=== PATIENT | female | born 1955 | race Caucasian/White ===

== ENCOUNTER 2025-03-20 09:50 | Day surgery (SDC) | payer MEDICARE, BC, SELFPAY ==
[2025-03-20 10:19] VITALS: BP 154/81; PULSE 90; RESP 20; TEMP 36.2; O2SAT 98
[2025-03-20] MEDS: Tropicam./Phenyleph. (1/2.5%) 5 ML BTL OS ×3 (10:47→11:04)
--- NOTE | 2025-03-20 11:09 | W.ANESPRE ---
General Info Date of Service Date Performed: 03/20/25 Height: 5 ft 4.5 in Weight: 94.1 kg Body Mass Index (BMI): 35.0 Surgical Procedure: Operation Date: 03/20/25 12:40 Proposed Procedure Side Surgeon p Cataract Extraction with IOL Implant Left Rex Jansen MD Meds Allergies and Home Medications Allergies Allergy/AdvReac Type Severity Reaction Status Date / Time Sulfa (Sulfonamide Allergy Skin Rash Verified 03/20/25 10:58 Antibiotics) pantoprazole AdvReac Other (See Verified 03/20/25 10:58 Comment) Home Medication ?Medication ?Instructions ?Recorded ascorbic acid (vitamin C) 500 mg 500 mg PO DAILY 03/19/25 tablet (Vitamin C With Sadie Hips) cholecalciferol (vitamin D3) 10 400 unit PO DAILY 03/19/25 mcg (400 unit) tablet (Delta D3) hydrochlorothiazide 25 mg tablet 25 mg PO DAILY 03/19/25 lansoprazole 30 mg capsule,delayed 30 mg PO DAILY 03/19/25 release lisinopril 20 mg tablet 20 mg PO DAILY 03/19/25 metformin 500 mg tablet 1,000 mg PO BID 03/19/25 multivitamin (Daily Value tablet) 1 tab PO DAILY 03/19/25 omega 0-szc-kgn-fish oil 1,200 mg 1 cap PO DAILY 03/19/25 (144 mg-216 mg) capsule (Fish Oil) potassium 99 mg tablet 99 mg PO DAILY 03/19/25 tumeric/curcumin w/livia 1 cap PO DAILY 03/19/25 vitamin E 268 mg (400 unit) capsule 536 mg PO DAILY 03/19/25 Current Visit Medications: Current Medications Generic Name Dose Route Start Last Admin Trade Name Freq PRN Reason Stop Dose Admin Acetaminophen 1,000 mg 03/20/25 06:00 Acetaminophen 500 Mg Tab PO 04/19/25 05:59 Q4H PRN PRN Balanced Salt Solution 500 ml 03/20/25 06:00 Balanced Salt Soln.-Plus 500 Ml Bag OP 04/19/25 05:59 DIRECTED KANU Miscellaneous Medication 0 ml 03/20/25 06:00 Prednisolone 1%, Moxifloxacin 0.5%, Bromfenac 0.09% 5.6ml Btl OS 04/19/25 05:59 DIRECTED KANU Miscellaneous Medication 0 ml 03/20/25 06:00 03/20/25 11:04 Tropicam./Phenyleph. (1/2.5%) 5 Ml Btl OS 04/19/25 05:59 1 drp DIRECTED KANU Administration Tetracaine HCl 0 ml 03/20/25 06:00 Tetracaine 0.5% 4 Ml Btl OS 04/19/25 05:59 DIRECTED KANU PFSH Active Problems Active Problems: Problem Status Onset Code Cortical age-related cataract, left eye Acute H25.012 Nuclear age-related cataract, left eye Acute H25.12 Medical History Medical History Sleep apnea Breast cancer HTN (hypertension) Surgical History Surgical History History of mastectomy Hx of cholecystectomy Tobacco Smoking/Tobacco Use Status: Never Alcohol Alcohol Intake: never Substance Use Substance use type: does not use Vital Signs and Lab Results Vital Signs Most Recent Vital Signs in EMR: Most Recent Vital Signs Temp Pulse Resp BP Pulse Ox 36.2 C L 90 20 154/81 H 98 03/20/25 10:19 03/20/25 10:19 03/20/25 10:19 03/20/25 10:19 03/20/25 10:19 Point of Care Results Point of Care Results: Finger Stick Blood Glucose 103 03/20/25 10:27 Anesthesia Assessment and Plan Anesthesia History Personal History: No History of Anesthesia Complications Family History: No Family History of Anesthesia Complications Exercise Tolerance Exercise Tolerance: Metabolic Equivalents>4 Pertinent Negatives Pertinent Negatives: No Symptoms of GERD, No Major Cardiovascular Symptoms or Complaints and No Major Pulmonary Symptoms or Complaints Cardiac & Pulmonary Exam Cardiac Exam: Normal S1/S2 Heart Sounds Pulmonary Exam: Clear Bilateral Breath Sounds Implantable Cardiac Device Does patient have a Pacemaker or an ICD?: No Airway Exam Known Difficult Airway: No Mallampati Class: 3 Mouth Opening: Normal (> 3cm) Thyromental Distance: Greater than 3 cm Neck Range of Motion: Full ROM Neck Circumference: Normal Teeth Condition: Normal Dentition ASA Classification ASA Score: ASA 3 Emergency Case?: No NPO Status NPO Status: NPO Clears >2 hours, Solids >8 hours Anesthesia Plan Resuscitation Status: Full Code Anesthesia Technique: MAC Anesthesia Airway Planned: Natural Airway Monitors Used: Standard Monitors
[2025-03-20 11:43] VITALS: BMI 35.0
[2025-03-20] MEDS: Duovisc Viscoelastic System EACH 1 EACH (11:57)
[2025-03-20] MEDS: Lidocaine 1% Pres-Free 5 ML VIAL (11:58)
[2025-03-20] MEDS: Moxifloxacin-PF 1 MG/ML VIAL (11:59)
[2025-03-20] MEDS: Phenylephrine/Lidocaine (15/10) MG/ML 1 ML VIAL (12:00)
[2025-03-20] MEDS: Povidone-Iodine Ophth 30 ML BTL (12:01)
[2025-03-20] MEDS: Balanced Salt Soln.-PLUS 500 ML BAG OP (12:02)
[2025-03-20] MEDS: Prednisolone 1%, Moxifloxacin 0.5%, Bromfenac 0.09% 5.6ML BTL OS (12:04)
[2025-03-20] MEDS: Tetracaine 0.5% 4 ML BTL OS (12:05)
[2025-03-20 12:15] VITALS: BP 136/78; PULSE 80; RESP 20; TEMP 35.9; O2SAT 97
--- NOTE | 2025-03-20 12:17 | W.PM.DSUDISC ---
Date of service: 03/20/25 Discharge Plan Disposition Patient Disposition: Home Discharge Details Attending Provider: Rex Jansen Primary Care Provider: Andrew Lyons Home Meds and New Rx's Prescriptions: No Action lisinopril 20 mg tablet 20 mg PO DAILY Patient Comments: TAKE ONE TABLET BY MOUTH EVERY DAY metformin 500 mg tablet 1,000 mg PO BID Patient Comments: TAKE TWO TABLETS BY MOUTH TWICE A DAY hydrochlorothiazide 25 mg tablet 25 mg PO DAILY Patient Comments: TAKE ONE TABLET BY MOUTH EVERY DAY lansoprazole 30 mg capsule,delayed release(DR/EC) 30 mg PO DAILY omega 7-uiw-gpm-fish oil [Fish Oil] 1,200 (144-216) mg capsule 1 cap PO DAILY multivitamin [Daily Value] Tablet 1 tab PO DAILY ascorbic acid (vitamin C) [Vitamin C With Sadie Hips] 500 mg tablet 500 mg PO DAILY cholecalciferol (vitamin D3) [Delta D3] 10 mcg (400 unit) tablet 400 unit PO DAILY vitamin E 268 mg (400 unit) capsule 536 mg PO DAILY potassium 99 mg tablet 99 mg PO DAILY tumeric/curcumin w/livia 1 cap PO DAILY Discharge Instructions Stand Alone Forms: DSU Post-Op CataractZuhair (DSU) Discharge Orders Discharge Orders: Discharge Order (Routine); Ordered 03/20/25 Ordered By: Rex Jansen DS: Diagnosis Discharge Diagnosis (1) Cortical age-related cataract, left eye: Status: Resolved (2) Nuclear age-related cataract, left eye: Status: Resolved
--- NOTE | 2025-03-20 12:18 | ROE_ITS ---
Operative Note Operative Note PRE-OP DIAGNOSIS: Nuclear/cortical cataract, left eye POST-OP DIAGNOSIS: same PROCEDURE: Cataract extraction using phacoemulsification with intraocular lens implant, left eye SURGEON: Rex Jansen ANESTHESIA TYPE: Local By Surgeon and MAC Refer to Anesthesia Record PATHOLOGY: none sent COMPLICATIONS: None Patient was transported to: same day Patient's condition: stable Implants: David Clareon [id number] Indications: Progressive decreased vision due to cataract, left eye Procedure Description: CATARACT SURGERY OPERATIVE REPORT PREOPERATIVE DIAGNOSIS: Nuclear/cortical cataract, left eye POSTOPERATIVE DIAGNOSIS: Same OPERATION: Cataract extraction using phacoemulsification with posterior chamber intraocular lens implant, left eye. IOL: IOL Take Off Worker/Model: David Clareon [id number] IOL Power: + 14.0 diopters IOL Serial Number: [id number] Optic Diameter: 6.0mm Haptic/Overall Diameter: 13.0mm PHACO INFO: David Centurion Vision System with OZil and Active Fluidics Cumulative Dispersed Energy (CDE): 8.69 seconds SURGEON: Rex Jansen MD, RAHEEL ANESTHESIA: Monitored Anesthesia Care (MAC), with local sub-tenon's anesthetic infiltration COMPLICATIONS: None SPECIMENS: None INDICATIONS FOR PROCEDURE: The patient is a 69-year-old lady with history of diminished visual acuity in her left eye secondary to the development of nuclear/cortical cataract. She is significantly symptomatic that she desires cataract surgery and attempt to improve and maximize her vision. The option of cataract surgery was offered to the patient and she wished to proceed. See office notes for detailed information. PROCEDURE: The correct surgical eye was identified and marked as the left eye and the pupil was dilated in the preoperative area using mydriatics and cycloplegics. The dilated pupil size was 7.0 mm. The patient elected to proceed without oral sedation. The patient was brought to the operating room where cardiopulmonary monitoring was instituted and surgical time-out was performed, confirming the correct operative eye and IOL power. Topical anesthesia was administered and ophthalmic povidone-iodine 5% was instilled into the conjunctival fornices. The hamzah-ocular area was prepped with Betadine 10% solution and draped in the usual sterile fashion for intraocular surgery, including an aperture drape. A Tegaderm transparent film dressing was cut in half and used to cover the lashes and lid margins. Care was taken to sequester the lashes and lid margins under the Tegaderm dressing. A lid speculum was placed between the lids of the operative eye and the David LuxOR Revalia operating microscope was maneuvered into position. Marito scissors were then used to make a conjunctival buttonhole approximately 6mm posterior to the limbus in the inferonasal quadrant. Blunt dissection was carried out to expose bare sclera, and a blunt-tipped sub-tenon?s anesthesia cannula was introduced and passed posteriorly along the globe where non- preserved plain lidocaine was injected into posterior sub-Tenon?s space. A sideport knife was used to make a paracentesis port. Intraocular phenylephrine/lidocaine was injected into the anterior chamber. The anterior chamber was then filled with viscoelastic. A keratome knife was used construct a two-plane clear corneal tunnel extending 2.0mm into clear cornea. A flap was raised on the anterior capsule and capsulorhexis forceps were used to complete a continuous curvilinear capsulorhexis of 5.5 mm. Balanced salt solution was then used to perform cortical cleaving hydrodissection and nuclear hydrodelineation until the lens could be freely rotated within the capsular bag. The lens nucleus was then disassembled and removed within the capsular bag and iris plane using phacoemulsification. Residual cortical material was removed using the irrigation/aspiration handpiece. The posterior capsule was carefully polished to remove as much residual lens epithelial cells as safely possible. The capsular bag was then inflated and the anterior chamber deepened with viscoelastic. The lens implant described above was inserted into the capsular bag using the David Autonome Injector. A Kuglen hook was used to dial the IOL into position. Residual viscoelastic was then removed first from posterior to the IOL, then from the anterior chamber using the I/A handpiece. The lens implant was noted to center nicely within the capsular bag. The incisions were stromally hydrated, and the anterior chamber was reformed using BSS. Then 0.5cc of moxifloxacin 1.0mg/ml were injected into the capsular bag and anterior chamber. The incisions were checked with a Weck spear and found to be secure. Several drops of ophthalmic povidone-iodine 5% were then applied to the eye followed by two drops of combination steroid/NSAID/antibiotic solution. The drapes were removed and a clear plastic protective eye shield was placed over the eye. The patient was then returned to Same Day Surgery in stable condition. Date of Procedure: 03/20/25
--- NOTE | 2025-03-20 12:34 | W.ANESPOSTOP ---
Postoperative Evaluation Date, Time and Location Date Performed: 03/20/25 Time Performed: 12:27 Patient Location: Day Surgery Unit Vital Signs Most Recent Imported Vital Signs: Most Recent Vital Signs Temp Pulse Resp BP Pulse Ox 35.9 C L 80 20 136/78 97 03/20/25 12:15 03/20/25 12:15 03/20/25 12:15 03/20/25 12:15 03/20/25 12:15 Pain Score Most Recent Pain Score: Most Recent Pain Score Pain Level 0 03/20/25 12:15 Assessment Mental Status: Awake (Alert & Oriented to Patient Baseline) Airway and Respiratory Function: Patent airway with normal (patient baseline) respiratory exam Cardiovascular Function: Hemodynamically Stable Hydration Status: Adequately Hydrated Nausea & Vomiting: No Nausea or Vomiting Pain: Pt. Denies Any Pain Peripheral Nerve Block: Patient did not receive a nerve block
== END 2025-03-20 12:35 | disposition home or self-care (01) ==
PROVIDERS: PCP Family Medicine; Visit Provider Ophthalmology
PROC: (CPT 66984; principal; 2025-03-20 12:30)
DX: H25.012 Cortical age-related cataract, left eye (principal); H25.12 Age-related nuclear cataract, left eye
CPT/HCPCS: 66984; 00123; V2632; J2003

== ENCOUNTER 2025-04-17 13:08 | Day surgery (SDC) | payer MEDICARE, BC, SELFPAY ==
--- NOTE | 2025-04-16 19:57 | W.PREOPHP ---
Assessment and Plan Assessment and plan (1) Nuclear age-related cataract, right eye: Status: Acute Assessment and plan: Assessent: Visually significant cataract, right eye. Plan: Cataract extraction with intraocular lens implant, right eye. (2) Cortical age-related cataract, right eye: Status: Acute Assessment and plan: Assessent: Visually significant cataract, right eye. Plan: Cataract extraction with intraocular lens implant, right eye History of Present Illness History of Present Illness Chief Complaint: Progressive decreased vision, right eye Narrative: The patient is a 69-year-old lady with history of diminished acuity in both eyes. She notes severe difficulty with glare at night. She has difficulty working on computers, and reading posters in her classroom. She has trouble reading fine print. She has a history of myopia and has worn glasses since fifth grade. She was noted to have bilateral nuclear/cortical cataracts, and underwent cataract surgery in the left eye on 03/20/2025. She is doing well postoperatively and now presents for cataract surgery in the right eye. Review of Systems All systems reviewed & are unremarkable except as noted in HPI and below PFSH All Active Problems Cortical age-related cataract, right eye (Acute) Nuclear age-related cataract, right eye (Acute) Medical History Sleep apnea Breast cancer HTN (hypertension) Surgical History History of mastectomy Hx of cholecystectomy Social History Smoking/Tobacco Use Status: Never Smoking risk assessment performed?: Yes Alcohol Intake: never Drug use: Never Substance use type: does not use Housing: house Do you feel safe at home: Yes Do you feel safe in your relationship?: Yes Meds Allergies and Home Medications Allergies Allergy/AdvReac Type Severity Reaction Status Date / Time Sulfa (Sulfonamide Allergy Skin Rash Verified 04/17/25 13:18 Antibiotics) pantoprazole AdvReac Other (See Verified 04/17/25 13:18 Comment) Home Medications ?Medication ?Instructions ?Recorded ?Confirmed ?Type ascorbic acid (vitamin C) 500 mg 500 mg PO DAILY 03/19/25 04/17/25 History tablet (Vitamin C With Asdie Hips) cholecalciferol (vitamin D3) 10 400 unit PO DAILY 03/19/25 04/17/25 History mcg (400 unit) tablet (Delta D3) hydrochlorothiazide 25 mg tablet 25 mg PO DAILY 03/19/25 04/17/25 History lansoprazole 30 mg capsule,delayed 30 mg PO DAILY 03/19/25 04/17/25 History release lisinopril 20 mg tablet 20 mg PO DAILY 03/19/25 04/17/25 History metformin 500 mg tablet 1,000 mg PO BID 03/19/25 04/17/25 History multivitamin (Daily Value tablet) 1 tab PO DAILY 03/19/25 04/17/25 History omega 1-yej-hhy-fish oil 1,200 mg 1 cap PO DAILY 03/19/25 04/17/25 History (144 mg-216 mg) capsule (Fish Oil) potassium 99 mg tablet 99 mg PO DAILY 03/19/25 04/17/25 History tumeric/curcumin w/livia 1 cap PO DAILY 03/19/25 04/17/25 History vitamin E 268 mg (400 unit) capsule 536 mg PO DAILY 03/19/25 04/17/25 History Exam Eyes Other: Corrected visual acuity measured 20/30 OD, 20/40 OS. Extraocular agility is normal. Intraocular pressure is 16 OU. Pupils dilate to 6 mm. In the right eye there is a mild close moderate nuclear cataract. In the left eye there is a well-positioned intraocular lens with clear posterior capsule. Funduscopic examination shows disc cupping of 0.4 OD 0.3 OS with normal vessels, macula, peripheral retina and vitreous. Resp Auscultation: clear to auscultation bilaterally Cardio Rate: regular rate Rhythm: regular rhythm
[2025-04-17 13:09] VITALS: BP 161/92; PULSE 96; RESP 16; TEMP 36.2; O2SAT 98
[2025-04-17 13:26] VITALS: BMI 34.3
[2025-04-17] MEDS: Tropicam./Phenyleph. (1/2.5%) 5 ML BTL OD ×3 (13:26→13:35)
--- NOTE | 2025-04-17 13:26 | W.ANESPRE ---
General Info Date of Service Date Performed: 04/17/25 Height: 5 ft 4.5 in Weight: 92.2 kg Body Mass Index (BMI): 34.3 Surgical Procedure: Operation Date: 04/17/25 13:55 Proposed Procedure Side Surgeon p Cataract Extraction with IOL Implant Right Rex Jansen MD Meds Allergies and Home Medications Allergies Allergy/AdvReac Type Severity Reaction Status Date / Time Sulfa (Sulfonamide Allergy Skin Rash Verified 04/17/25 13:18 Antibiotics) pantoprazole AdvReac Other (See Verified 04/17/25 13:18 Comment) Home Medication ?Medication ?Instructions ?Recorded ascorbic acid (vitamin C) 500 mg 500 mg PO DAILY 03/19/25 tablet (Vitamin C With Sadie Hips) cholecalciferol (vitamin D3) 10 400 unit PO DAILY 03/19/25 mcg (400 unit) tablet (Delta D3) hydrochlorothiazide 25 mg tablet 25 mg PO DAILY 03/19/25 lansoprazole 30 mg capsule,delayed 30 mg PO DAILY 03/19/25 release lisinopril 20 mg tablet 20 mg PO DAILY 03/19/25 metformin 500 mg tablet 1,000 mg PO BID 03/19/25 multivitamin (Daily Value tablet) 1 tab PO DAILY 03/19/25 omega 0-ybh-ciy-fish oil 1,200 mg 1 cap PO DAILY 03/19/25 (144 mg-216 mg) capsule (Fish Oil) potassium 99 mg tablet 99 mg PO DAILY 03/19/25 tumeric/curcumin w/livia 1 cap PO DAILY 03/19/25 vitamin E 268 mg (400 unit) capsule 536 mg PO DAILY 03/19/25 Current Visit Medications: Current Medications Generic Name Dose Route Start Last Admin Trade Name Freq PRN Reason Stop Dose Admin Acetaminophen 1,000 mg 04/17/25 06:00 Acetaminophen 500 Mg Tab PO 05/17/25 05:59 Q4H PRN PRN Balanced Salt Solution 500 ml 04/17/25 06:00 Balanced Salt Soln.-Plus 500 Ml Bag OP 05/17/25 05:59 DIRECTED KANU Miscellaneous Medication 0 ml 04/17/25 06:00 Prednisolone 1%, Moxifloxacin 0.5%, Bromfenac 0.09% 5.6ml Btl OD 05/17/25 05:59 DIRECTED KANU Miscellaneous Medication 0 ml 04/17/25 06:00 Tropicam./Phenyleph. (1/2.5%) 5 Ml Btl OD 05/17/25 05:59 DIRECTED [facility] Tetracaine HCl 0 ml 04/17/25 06:00 Tetracaine 0.5% 4 Ml Btl OD 05/17/25 05:59 DIRECTED [facility] PFSH Active Problems Active Problems: Problem Status Onset Code Cortical age-related cataract, right eye Acute H25.011 Nuclear age-related cataract, right eye Acute H25.11 Cortical age-related cataract, left eye Resolved H25.012 Nuclear age-related cataract, left eye Resolved H25.12 Medical History Medical History Sleep apnea Breast cancer HTN (hypertension) Surgical History Surgical History History of mastectomy Hx of cholecystectomy Tobacco Smoking/Tobacco Use Status: Never Passive smoking exposure: No Alcohol Alcohol Intake: never Substance Use Substance use: Never Substance use type: does not use Vital Signs and Lab Results Vital Signs Most Recent Vital Signs in EMR: Most Recent Vital Signs Temp Pulse Resp BP Pulse Ox 36.2 C L 96 H 16 161/92 H 98 04/17/25 13:09 04/17/25 13:09 04/17/25 13:09 04/17/25 13:09 04/17/25 13:09 Anesthesia Assessment and Plan Anesthesia History Personal History: No History of Anesthesia Complications Family History: No Family History of Anesthesia Complications Exercise Tolerance Exercise Tolerance: Metabolic Equivalents>4 Pertinent Negatives Pertinent Negatives: No Symptoms of GERD (RX) Cardiac & Pulmonary Exam Cardiac Exam: Normal S1/S2 Heart Sounds Pulmonary Exam: Clear Bilateral Breath Sounds Implantable Cardiac Device Does patient have a Pacemaker or an ICD?: No Airway Exam Known Difficult Airway: No Mallampati Class: 3 Mouth Opening: Normal (> 3cm) Thyromental Distance: Greater than 3 cm Neck Range of Motion: Full ROM Neck Circumference: Normal Teeth Condition: Normal Dentition ASA Classification ASA Score: ASA 3 Emergency Case?: No NPO Status NPO Status: NPO Clears >2 hours, Solids >8 hours Anesthesia Plan Resuscitation Status: Full Code Anesthesia Technique: MAC Anesthesia Airway Planned: Natural Airway Monitors Used: Standard Monitors
[2025-04-17] MEDS: Duovisc Viscoelastic System EACH 1 EACH (13:45)
[2025-04-17] MEDS: Povidone-Iodine Ophth 30 ML BTL (13:46)
[2025-04-17] MEDS: Balanced Salt Soln.-PLUS 500 ML BAG OP (13:46)
[2025-04-17] MEDS: Tetracaine 0.5% 4 ML BTL OD (13:46)
[2025-04-17] MEDS: Phenylephrine/Lidocaine (15/10) MG/ML 1 ML VIAL (13:47)
[2025-04-17] MEDS: Lidocaine 1% Pres-Free 5 ML VIAL (13:47)
[2025-04-17] MEDS: Moxifloxacin-PF 1 MG/ML VIAL (13:48)
[2025-04-17] MEDS: Prednisolone 1%, Moxifloxacin 0.5%, Bromfenac 0.09% 5.6ML BTL OD (13:48)
[2025-04-17 14:08] VITALS: BP 155/81; PULSE 80; RESP 14; TEMP 36.6; O2SAT 97
--- NOTE | 2025-04-17 14:11 | W.PM.DSUDISC ---
Date of service: 04/17/25 Discharge Plan Disposition Patient Disposition: Home Discharge Details Attending Provider: Rex Jansen Primary Care Provider: Andrew Lyons Home Meds and New Rx's Prescriptions: No Action lisinopril 20 mg tablet 20 mg PO DAILY Patient Comments: TAKE ONE TABLET BY MOUTH EVERY DAY metformin 500 mg tablet 1,000 mg PO BID Patient Comments: TAKE TWO TABLETS BY MOUTH TWICE A DAY hydrochlorothiazide 25 mg tablet 25 mg PO DAILY Patient Comments: TAKE ONE TABLET BY MOUTH EVERY DAY lansoprazole 30 mg capsule,delayed release(DR/EC) 30 mg PO DAILY omega 9-bdx-kzf-fish oil [Fish Oil] 1,200 (144-216) mg capsule 1 cap PO DAILY multivitamin [Daily Value] Tablet 1 tab PO DAILY ascorbic acid (vitamin C) [Vitamin C With Sadie Hips] 500 mg tablet 500 mg PO DAILY cholecalciferol (vitamin D3) [Delta D3] 10 mcg (400 unit) tablet 400 unit PO DAILY vitamin E 268 mg (400 unit) capsule 536 mg PO DAILY potassium 99 mg tablet 99 mg PO DAILY tumeric/curcumin w/livia 1 cap PO DAILY Discharge Instructions Stand Alone Forms: DSU Post-Op Cataract, Zuhair Cantu (DSU) Discharge Orders Discharge Orders: Discharge Order (Routine); Ordered 04/17/25 Ordered By: Rex Jansen DS: Diagnosis Discharge Diagnosis (1) Nuclear age-related cataract, right eye: Status: Resolved (2) Cortical age-related cataract, right eye: Status: Resolved
--- NOTE | 2025-04-17 14:12 | ROE_ITS ---
Operative Note Operative Note PRE-OP DIAGNOSIS: Nuclear/cortical cataract, right eye POST-OP DIAGNOSIS: same PROCEDURE: Cataract extraction using phacoemulsification with intraocular lens implant, right eye SURGEON: Rex Jansen ANESTHESIA TYPE: Local By Surgeon and MAC Refer to Anesthesia Record ESTIMATED BLOOD LOSS: 0 PATHOLOGY: none sent COMPLICATIONS: None Patient was transported to: same day Patient's condition: stable Implants: David Clareon [id number] Indications: Progressive decreased vision due to cataract, right eye Procedure Description: CATARACT SURGERY OPERATIVE REPORT PREOPERATIVE DIAGNOSIS: Nuclear/cortical cataract, right eye POSTOPERATIVE DIAGNOSIS: Same OPERATION: Cataract extraction using phacoemulsification with posterior chamber intraocular lens implant, right eye. IOL: IOL Data Integration Architect/Model: David Clareon [id number] IOL Power: + 13.5 diopters IOL Serial Number: [id number] Optic Diameter: 6.0mm Haptic/Overall Diameter: 13.0mm PHACO INFO: David [employer]urion Vision System with OZil and Active Fluidics Cumulative Dispersed Energy (CDE): 3.58 seconds SURGEON: Rex Jansen MD, RAHEEL ANESTHESIA: Monitored Anesthesia Care (MAC), with local sub-tenon's anesthetic infiltration COMPLICATIONS: None SPECIMENS: None INDICATIONS FOR PROCEDURE: The patient is a 69-year-old lady with history of myopia who has developed significant symptomatic bilateral nuclear/cortical cataract. The option of cataract surgery was offered to the patient and she wished to proceed. She has already undergone cataract surgery in the left eye and is doing well postoperatively. She now presents for cataract surgery in the right eye. See office notes for detailed information. PROCEDURE: The correct surgical eye was identified and marked as the right eye and the pupil was dilated in the preoperative area using mydriatics and cycloplegics. The dilated pupil size was 6.0 mm. The patient elected to proceed without oral sedation. The patient was brought to the operating room where cardiopulmonary monitoring was instituted and surgical time-out was per formed, confirming the correct operative eye and IOL power. Topical anesthesia was administered and ophthalmic povidone-iodine 5% was instilled into the conjunctival fornices. The hamzah-ocular area was prepped with Betadine 10% solution and draped in the usual sterile fashion for intraocular surgery, including an aperture drape. A Tegaderm transparent film dressing was cut in half and used to cover the lashes and lid margins. Care was taken to sequester the lashes and lid margins under the Tegaderm dressing. A lid speculum was placed between the lids of the operative eye and the David Lux[employer] Revalia operating microscope was maneuvered into position. Marito scissors were then used to make a conjunctival buttonhole approximately 6mm posterior to the limbus in the inferonasal quadrant. Blunt dissection was carried out to expose bare sclera, and a blunt-tipped sub-tenon?s anesthesia cannula was introduced and passed posteriorly along the globe where non- preserved plain lidocaine was injected into posterior sub-Tenon?s space. A sideport knife was used to make a paracentesis port. Intraocular phenylephrine/lidocaine was injected into the anterior chamber. The anterior chamber was then filled with viscoelastic. A keratome knife was used to construct a two--plane clear corneal tunnel extending 2.0mm into clear cornea. A flap was raised on the anterior capsule and capsulorhexis forceps were used to complete a continuous curvilinear capsulorhexis of 5.5 mm. Balanced salt solution was then used to perform cortical cleaving hydrodissection and nuclear hydrodelineation until the lens could be freely rotated within the capsular bag. The lens nucleus was then disassembled and removed within the capsular bag and iris plane using phacoemulsification. Residual cortical material was removed using the I/A handpiece. The posterior capsule was carefully polished to remove as much residual lens epithelial cells as safely possible. The capsular bag was then inflated and the anterior chamber deepened with cohesive viscoelastic. The lens implant described above was inserted into the capsular bag using the David Autonome Injector. A Kuglen hook was used to dial the IOL into position. Residual viscoelastic was then removed first from posterior to the IOL, then from the anterior chamber using the I/A handpiece. The lens implant was noted to center nicely within the capsular bag. The incisions were stromally hydrated, and the anterior chamber was reformed using BSS. Then 0.5cc of moxifloxacin 1.0mg/ml were injected into the capsular bag and anterior chamber. The incisions were checked with a Weck spear and found to be secure. Several drops of ophthalmic povidone-iodine 5% were then applied to the eye followed by two drops of combination steroid/NSAID/antibiotic solution. The drapes were removed and a clear plastic protective eye shield was placed over the eye. The patient was then returned to Same Day Surgery in stable condition. Date of Procedure: 04/17/25
--- NOTE | 2025-04-17 14:23 | W.ANESPOSTOP ---
Postoperative Evaluation Date, Time and Location Date Performed: 04/17/25 Time Performed: 14:23 Patient Location: Day Surgery Unit Vital Signs Most Recent Imported Vital Signs: Most Recent Vital Signs Temp Pulse Resp BP Pulse Ox 36.6 C 80 14 155/81 H 97 04/17/25 14:08 04/17/25 14:08 04/17/25 14:08 04/17/25 14:08 04/17/25 14:08 Pain Score Most Recent Pain Score: Most Recent Pain Score Pain Level 0 04/17/25 14:08 Assessment Mental Status: Awake (Alert & Oriented to Patient Baseline) Airway and Respiratory Function: Patent airway with normal (patient baseline) respiratory exam Cardiovascular Function: Hemodynamically Stable Hydration Status: Adequately Hydrated Nausea & Vomiting: No Nausea or Vomiting Pain: Pt. Denies Any Pain Peripheral Nerve Block: Patient did not receive a nerve block
== END 2025-04-17 14:28 | disposition home or self-care (01) ==
LOC: SUR 13:08
PROVIDERS: PCP Family Medicine; Visit Provider Ophthalmology
PROC: (CPT 66984; principal; 2025-04-17 13:45)
DX: H25.11 Age-related nuclear cataract, right eye (principal); H25.011 Cortical age-related cataract, right eye; Z98.42 Cataract extraction status, left eye
CPT/HCPCS: 66984; 00123; V2632; J2003